=== PATIENT | female | born 1930 | race Caucasian/White ===

== ENCOUNTER 2019-01-02 10:19 | Emergency (ER) | payer OTHER, MEDICARE ==
--- NOTE | 2019-01-02 10:24 | PDOC ---
History of Present Illness - General Chief Complaint: Lightheaded Stated Complaint: DIZZY Time Seen by Provider: 01/02/19 10:22 History Source: Patient Exam Limitations: No Limitations - History of Present Illness Initial Comments: 01/02/19 11:25 HPI 88 yof from [facility] with h/o HTN presenting with dizziness. she states beginning ~3-4 days ago, she had episode of dizziness, was briefly evaluated by ambulance but not sent to the ED for evaluation, self resolved. Today, recurrence of dizziness that she has difficulty describing, associated with bilateral ear fullness; no tinnitus. No trauma. Denies fever, chills, chest pain, SOB, palpitation, dizziness, weakness, N, V, D , abdominal pain, bladder and bowel problems, leg swelling, No sick contacts or travel. No new changes in medications- only on antihypertensives Allergies: amoxicillin Past Medical History: HTN Social history: Lives at [facility]. No smoking. No alcohol. No illicit drugs. Surgical history: appendectomy PMD: Dr Justina FAJARDO Constitutional: no fevers or chills. HEENT: no headache. No congestion. No visual/hearing disturbances. +ear fullness , +dizziness. CVS: no cp or syncope. Resp: no sob. No cough. Gastrointestinal: no abdominal pain, nausea or vomiting. Genitourinary: no urinary sx, hematuria. MUSCULOSKELETAL: No joint pain and swelling. No neck or back pain. SKIN: no redness or skin changes, no discharge, no rash. No wounds. Hematologic: no easy bruising/bleeding. NEUROLOGIC: No headache, LOC or altered mental status. No weakness, numbness or tingling. +dizziness Allergic/Immunologic: no environmental allergies All other systems reviewed and negative, or as documented in HPI. PE: General: Well appearing, awake and alert, NAD. HEENT: NCAT, PERRL, EOMI, clear conjunctiva, anicteric, moist mucus membranes, clear oropharynx, no oral lesions.. Bilateral cerumen impaction, left>right. Hearing intact. Neck: neck supple, FROM Resp: CTAB, normal and even respirations, no respiratory distress CVS: RRR, no murmurs, 2+ peripheral pulses throughout, no peripheral edema Abdomen: soft, NTND, no peritoneal signs. Back: nontender, normal inspection and ROM MSK: no edema, HORN x4, ROM intact. No clubbing or cyanosis. normal bulk and tone. Extremities: no calf tenderness Neuro: Alert, oriented to person time and place. CN II-XII grossly intact. Strength prox and distally 5/5 throughout. Sensation grossly intact to light touch. HORN x4. No cerebellar signs, no dysmetria, bilateral finger to nose and heel to khan equal and symmetric. Speech clear. Skin: warm and well perfused, cap refill <2 sec, normal color Past History - Past Medical History Allergies/Adverse Reactions: Allergies Allergy/AdvReac Type Severity Reaction Status Date / Time amoxicillin Allergy Verified 07/22/15 11:22 Home Medications: Ambulatory Orders Amlodipine Besylate 10 mg PO HS 07/22/15 Aspirin [Aspirin EC] 81 mg PO DAILY 07/22/15 Balsalazide Disodium 4 tab PO DAILY 07/22/15 Metoprolol Succinate [Toprol Xl] 100 mg PO DAILY 07/22/15 Multivitamin [Poly-Vitamin] 1 each PO DAILY 07/22/15 Losartan/Hydrochlorothiazide [Losartan-Hctz 50-12.5 mg Tab] 1 each PO DAILY HTN: Yes - Surgical History Appendectomy: Yes - Suicide/Smoking/Psychosocial Hx Smoking History: Never smoked Hx Alcohol Use: No Drug/Substance Use Hx: No Medical Decision Making - Medical Decision Making 01/02/19 11:25 hpi as documented VS Wnl. pt well appearing, comfortably eating muffin. ddx. vertigo, cva, cerumen impaction, labrynthitis, bilateral cerumen impaction noted, disimpacted with angio cath and warm water, large one removed from left ear. pt states she feels better after bilateral ear disimpaction and flushing. no focal neuro deficits, normal sensorium and mentation, clear speech.. no active dizziness or vertigo. well appearing, likely peripheral etiology with findings. low utility of CT imaging without exam findings to suggest neurologic etiology. no s/s infection. EKG nonischemic EKG normal sinus rhythm at 73 bpm, no interval abnormalities, narrow QRS, ST and T wave segments and morphology normal. Nonspecific T wave abnormalities - no contiguous lead changes. DC back to [facility] Pt informed of my clinical impression, treatment recommendations and disposition plan. All questions answered to patient's satisfaction and expressed understanding and comfort with this. Reasons for returning to the ED sooner discussed with the patient otherwise, follow up with primary care physician. At the time of discharge, the patient is alert, clinically improved, tolerating po and verbalizes understanding of instructions. Patient does not suffer from an acute life-threatening medical condition at this time she is safe for outpatient follow-up. *DC/Admit/Observation/Transfer Diagnosis at time of Disposition: Impacted cerumen of both ears, Dizziness - Discharge Dispostion Disposition: HOME Condition at time of disposition: Improved Decision to Admit order: No - Referrals Referrals: Jose Carlos Horn [Non Staff, Medical] - - Patient Instructions Printed Discharge Instructions: DI for Cerumen Impaction, DI for Dizziness- Nonvertigo, Combating Dizziness in Older Adults Additional Instructions: you had cerumen impaction of your ears, likely the cause of your symptoms including dizziness. keep your ears clean and dry to avoid further impaction and recurrence of symptoms. 1) Please follow-up with your primary care doctor in the next 1-2 days. Please call tomorrow for an appointment. If you cannot follow-up with your primary care doctor please return to the ED for any urgent issues. 2) You were given a copy of the tests performed today. Please bring the results with you and review them with your primary care doctor. Dr Horn 3) If you have any worsening of symptoms or any other concerns please return to the ED immediately. Return if worsening symptoms including fevers, headache, vomiting, visual or hearing disturbances, focal numbness/tingling/weakness, gait instability or imbalance, speech difficulty, neurologic changes, abdominal pain, chest pain, shortness of breath, syncope, dehydration, inability to take things by mouth/vomiting, altered mental status, or worsening concerning symptoms. - Post Discharge Activity
[2019-01-02 10:47] VITALS: BP 164/66; PULSE 67; TEMP 97.8; BMI 24.0
--- NOTE | 2019-01-02 10:58 | EKG ---
Test Reason : Blood Pressure : / mmHG Vent. Rate : 073 BPM Atrial Rate : 073 BPM P-R Int : 166 ms QRS Dur : 082 ms QT Int : 414 ms P-R-T Axes : 041 003 019 degrees QTc Int : 456 ms NORMAL SINUS RHYTHM WITH SINUS ARRHYTHMIA NONSPECIFIC ST ABNORMALITY ABNORMAL ECG NO PREVIOUS ECGS AVAILABLE Confirmed by MD BANDAR, ELEANOR ([id number]) on 01/02/2019 10:58:27 AM Referred By: AVANI Confirmed By:ELEANOR PORTILLO MD
== END 2019-01-02 11:57 | disposition home or self-care (01) ==
LOC: FER 10:19
PROC: 3E1B78Z Irrigation of Ear using Irrigating Substance, Via Natural or Artificial Opening (ICD-10-PCS; principal; 2019-01-02)
PROC: 3E1B78Z Irrigation of Ear using Irrigating Substance, Via Natural or Artificial Opening (ICD-10-PCS; 2019-01-02)
DX: H61.23 Impacted cerumen, bilateral (principal); R42 Dizziness and giddiness; I10 Essential (primary) hypertension
CPT/HCPCS: 93005; 99282-25